=== PATIENT | female | born 1975 | race Caucasian/White ===

== ENCOUNTER 2017-12-22 07:33 | Day surgery (SDC) | payer OTHER ==
[2017-12-21 11:19] LABS: Absolute Lymphocytes (CBC) 1.8 K/uL (0.7-4.9); Absolute Monocytes 0.4 K/uL (0.1-1.3); Basophils % 0.6 % (0-1.3); Eosinophils % 1.4 % (0-4.4); Hematocrit 43.6 % (36.0-45.0); Lymphocytes % 33.8 % (15.3-44.8); MCH 31.6 pg (27.0-35.0); MCV 93.7 fL (80-100); MPV 8.6 fL (7.6-11.3); Monocytes % 7.5 % (3.3-12.3); RBC Red Blood Cell Count 4.65 M/uL (3.86-4.86)
[2017-12-21 11:26] LABS: Protime INR 1.05
--- NOTE | 2017-12-21 11:31 | RAD REPORT ---
EXAM DESCRIPTION: Ursula Stewart (2 Views)12/21/2017 11:20 am CLINICAL HISTORY: Palpitation/ Preop for cardiac cath COMPARISON: None FINDINGS: The lungs appear clear of acute infiltrate. The heart is normal size IMPRESSION: No acute abnormalities displayed
[2017-12-21 11:34] LABS: Potassium 4.1 mmol/L (3.5-5.1)
[2017-12-22] MEDS ORDERED: NA CHLORIDE 0.9% 500 ML ONE ×3 (08:12→14:50)
[2017-12-22] MEDS ORDERED: MIDAZOLAM HCL 2 MG/2 ML INJ ONE ×2 (09:17→09:29)
[2017-12-22] MEDS ORDERED: FENTANYL CITR 100 MCG/2 ML ONE (09:17)
[2017-12-22] MEDS ORDERED: LIDOCAINE 1% 20 ML MDV ONE ×2 (09:17→09:33)
[2017-12-22] MEDS ORDERED: NA CHLORIDE 0.9% 0 ML ONE (09:18)
[2017-12-22] MEDS ORDERED: HEPA 1000U/500MLS 1,000 UNIT/500 ML BAG IV ONE (09:18)
[2017-12-22] MEDS ORDERED: HEPARIN/D5W 0 UNIT/0 ML BAG IV ONE (09:18)
[2017-12-22] MEDS ORDERED: ATROPINE SULF 1 MG/10 ML SYR IV ONE (09:18)
[2017-12-22] MEDS ORDERED: FENTANYL CITR 250 MCG/5 ML ONE (10:57)
--- NOTE | 2017-12-22 11:50 | OP ---
Surgeon: Stepan Hanna MD [place] Tender: Jacquie Reeder. Procedure: Left heart catheterization, selective coronary arteriogram. Indication: Chest pain and positive Cardiolite. Indications: Ms. Atkinson is a 42-year-old white woman with atypical chest pain, family history of heart disease, hypertension, dyslipidemia, diet controlled with atypical chest pain, palpitations, abnorma l apical ischemia finding on a stress test, admitted to the lab courier as an outpatient. She was given for 6 mg of Versed and 75 mg of fentanyl for sedation. Right common femoral artery access was obtai tana. Angiography, there was normal. Angio-Seal was used to close the case. Six-Setswana catheters, 3 .5 for the left, and JR4 for the right were used to do the coronary injections. She was found to hav e minimal plaquing in the proximal LAD, normal circumflex and RCA. There were no complications. Blood Loss: 5 cc. Anesthesia: Total conscious sedation was 30 minutes. Postoperative Diagnosis: Minimal coronary artery disease. Plan: For medical therapy. I will encourage her to start statins. Operators: Swapna Guardado Voice ID: [id number] Report ID: [id number]
--- NOTE | 2017-12-22 15:27 | RAD REPORT ---
EXAM DESCRIPTION: CT - Abdomen Pelvis Wo Contrast - 12/22/2017 3:14 pm CLINICAL HISTORY: Abdominal pain status post right femoral catheterization COMPARISON: None TECHNIQUE: Computed axial tomography of the abdomen and pelvis was obtained. IV and oral contrast we re not requested. All CT scans are performed using dose optimization technique as appropriate and may include automated exposure control or mA/KV adjustment according to patient size. FINDINGS: The evaluation of solid organs, vessels and bowel is limited secondary to the lack of con trast administration. The liver, spleen, pancreas, adrenals kidneys and bladder appear grossly normal. A right inguinal hematoma is not present. There is minimal stranding within the subcutaneous fat. A fibroid uterus is suspected. Anterior to the right distal external iliac vessels is an ill-defined 2.5 x 2 centimeter area of incr eased density consistent with blood. IMPRESSION: Small amount of blood lies anterior to the right distal external iliac vessels.
== END 2017-12-22 16:15 | disposition home or self-care (01) ==
LOC: CCL 07:33
PROC: B201YZZ Plain Radiography of Multiple Coronary Arteries using Other Contrast (ICD-10-PCS; principal; 2017-12-22)
DX: I25.10 Atherosclerotic heart disease of native coronary artery without angina pectoris (principal); R07.89 Other chest pain; R00.2 Palpitations; I10 Essential (primary) hypertension; E78.5 Hyperlipidemia, unspecified; E78.6 Lipoprotein deficiency; Z87.891 Personal history of nicotine dependence; Z88.6 Allergy status to analgesic agent; Z82.49 Family history of ischemic heart disease and other diseases of the circulatory system
CPT/HCPCS: 36415; 71046; 74176; 80048; 81025; 85025; 85610; 85730; 93454; C1760; C1893; J0583; J2250; J3010